=== PATIENT | female | born 1960 | race Caucasian/White ===

== ENCOUNTER 2025-04-01 07:04 | Day surgery (SDC) | payer OTHER ==
[~2025-04-01] VITALS: Ht 168 cm; Wt 87.2 kg
[2025-04-01] VITALS (21 sets, daily range): BP systolic 124–184; BP diastolic 75–112
[~2025-04-01 07:04] MED LIST: CYCL10; CYCL10 PO; IBUP200 PO; KETO10 PO; ONE DAILY COMP1 EACH PO; OXYC5; Oxycodone HCl20 M1 PO
--- NOTE | 2025-04-01 07:55 | NUR ---
Ambulatory in Day Surgery History, Chart, Medications and Allergies reviewed before start of procedure.Patient confirms NPO status and agrees with scheduled surgery. Patient states colon prep results clear.Lungs clear T/O to Auscultation.
--- NOTE | 2025-04-01 08:13 | NUR ---
04/01/25 0813 Hamzah Ashby CONFIRMED AND REVIEWED H&P, MEDCICATIONS, ALLERGIES, MEDICAL HISTORY, RESPIRATORY HISTORY, VITAL SIGNS, 3-LEAD EKG, CONSENTS, AND PHYSICIAN ORDERS. PATIENT CONFIRMS NPO STATUS AND AGREES WITH SCHEDULED PROCEDURE. MONITOR INTACT WITH CONTINUOUS PULSE OXIMETRY, CAPNOGRAPHY, 3-LEAD EKG, INTERMITTENT BP. SUPPLEMENTAL O2 TO BE TITRATED THROUGHOUT PROCEDURE TO MAINTAIN O2 SATURATION ABOVE 90%. PATIENT DETERMINED TO BE ASA APPROPRIATE FOR PROPOFOL SEDATION PRIOR TO START OF PROCEDURE BY DR. MITTAL
[2025-04-01] MEDS ORDERED: Midazolam HCl 1MG / ML 2ML Vial ONE (08:18)
--- NOTE | 2025-04-01 09:06 | NUR ---
Discharge instructions reviewed with patient. Patient verbalizes understanding. Copy given to patient to take home. Patient States Post-Procedure ride home has been arranged. Discharged via wheelchair to private car for ride home.
== END 2025-04-01 09:07 | disposition home or self-care (01) ==
LOC: ORSCMMR 07:04 → ORD 08:00 → ORSCMMR 08:00
PROVIDERS: Internal Medicine Gastroenterology
PROC: 0DBN8ZX Excision of Sigmoid Colon, Via Natural or Artificial Opening Endoscopic, Diagnostic (ICD-10-PCS; principal; 2025-04-01 08:00)
PROC: 0DBP8ZX Excision of Rectum, Via Natural or Artificial Opening Endoscopic, Diagnostic (ICD-10-PCS; principal; 2025-04-01 08:00)
DX: Z12.11 Encounter for screening for malignant neoplasm of colon (principal); D12.5 Benign neoplasm of sigmoid colon; K63.5 Polyp of colon; K62.1 Rectal polyp; K57.30 Diverticulosis of large intestine without perforation or abscess without bleeding; Z80.0 Family history of malignant neoplasm of digestive organs; Z86.0101 Personal history of adenomatous and serrated colon polyps; Z85.53 Personal history of malignant neoplasm of renal pelvis; F17.210 Nicotine dependence, cigarettes, uncomplicated
CPT/HCPCS: 88305; J2250; J2704; J7120

== ENCOUNTER 2025-05-06 07:48 | Emergency (ER) | payer OTHER ==
[~2025-05-06] VITALS: Ht 167.6 cm; Wt 89.8 kg
[2025-05-06 08:59] LABS: BASOPHILS ABSOLUTE AUTO 0.07 K/mm3 (0.00-0.23); BASOPHILS PERCENT AUTO 1 % (0-2); EOSINOPHILS ABSOLUTE AUTO 0.35 K/mm3 (0.00-0.68); EOSINOPHILS PERCENT AUTO 4 % (0-6); Hematocrit 40.7 % (33.0-51.0); Hemoglobin 13.2 g/dL (11.5-16.0); IMMATURE GRAN ABSOLUTE AUTO 0.05 K/mm3 (0.00-0.10); IMMATURE GRAN PERCENT AUTO 1 % (0-1); LYMPHOCYTES ABSOLUTE AUTO 2.36 K/mm3 (0.84-5.20); LYMPHOCYTES PERCENT AUTO 27 % (21-46); MONOCYTES ABSOLUTE AUTO 0.54 K/mm3 (0.16-1.47); MONOCYTES PERCENT AUTO 6 % (4-13); Mean Corpuscular HGB Conc 32.4 g/dL (31.5-36.5); Mean Corpuscular Volume 85 fL (80-100); NEUTROPHILS ABSOLUTE AUTO 5.28 K/mm3 (1.96-9.15); NEUTROPHILS PERCENT AUTO 61 % (41-73); NRBC ABSOLUTE 0.00 K/mm3 (0.00-0.02); NRBC Auto 0.0 /100 WBC (0.0-0.2); Platelet Count 288 K/mm3 (150-400); RDW Coefficient Variation 14.5 % (11.7-14.2); RDW Standard Deviation 44.8 fL (35.1-46.3)
[2025-05-06 09:21] LABS: Alanine Aminotransfer (ALT/SGP 33.0 U/L (12-78); Albumin, Blood 3.5 g/dL (3.4-5.0); Albumin/Globulin Ratio 0.9 (0.8-1.8); Anion Gap 9.0 mmol/L (3-11); Aspartate Aminotrans (AST/SGOT 22.0 U/L (12-37); Bilirubin, Total 0.2 mg/dL (0.1-1.0); Blood Urea Nitrogen 19.0 mg/dL (8-24); CO2, Blood 25.0 mmol/L (21-32); Calcium, Blood 9.0 mg/dL (8.5-10.1); Chloride, Blood 108.0 mmol/L (98-108); Creatinine, Blood 0.83 mg/dL (0.40-1.00); Globulin, Blood 3.7 g/dL (2.2-4.0); Glucose, Blood 111.0 mg/dL (70-99); Potassium, Blood 4.2 mmol/L (3.5-5.5); Sodium, Blood 138.0 mmol/L (136-145); Total Protein, Blood 7.2 g/dL (6.4-8.2)
[2025-05-06 09:50] LABS: Source, Urine Clean Catch
[2025-05-06 09:54] LABS: Bilirubin, Urine Neg (Neg); Color, Urine Red (P-Yellow); Glucose Qualitative, Urine Neg (Neg); Ketones, Urine Neg (Neg); Leukocyte Esterase, Urine 1+ (Neg); Protein, Urine 3+ (Neg); Specific Gravity, Urine 1.015 (1.003-1.022); Urobilinogen, Urine NORM (Normal)
[2025-05-06 10:00] LABS: Red Blood Cells, Urine TNTC /hpf (0-2); White Blood Cells, Urine 25-50 /hpf (0-5)
[2025-05-06] MEDS ORDERED: NITR100CA PO (11:20)
[2025-05-06 11:33] VITALS: BP 178/97
== END 2025-05-06 11:33 | disposition home or self-care (01) ==
LOC: ER 07:48
PROVIDERS: Student in an Organized Health Care Education/Training Program
DX: K52.9 Noninfective gastroenteritis and colitis, unspecified (principal); N39.0 Urinary tract infection, site not specified; K57.30 Diverticulosis of large intestine without perforation or abscess without bleeding; N20.0 Calculus of kidney; F17.200 Nicotine dependence, unspecified, uncomplicated; Z98.890 Other specified postprocedural states; Z88.2 Allergy status to sulfonamides; Z88.0 Allergy status to penicillin
CPT/HCPCS: 74177; 80053; 81001; 85025; 87086; 99284-25; Q9967

== ENCOUNTER → 2025-07-22 | Outpatient (CLI) | payer OTHER ==
[~2025-07-22] MED LIST changes: +NITR100CA PO
[2025-07-27 06:26] LABS: CALCIUM, URINE - PER 24H 126 mg/d (100-250); CALCIUM, URINE - PER VOLUME 11.5 mg/dL; CHLORIDE, URINE - PER 24H 133 mmol/d (140-250); CHLORIDE, URINE - PER VOLUME 121 mmol/L; CITRIC ACID, URINE - PER 24H 24 mg/d (320-1240); CITRIC ACID,URINE - PER VOLUME 22 mg/L; CREATININE, URINE - PER 24H 1199 mg/d (500-1400); CREATININE, URINE - PER VOLUME 109 mg/dL; HOURS COLLECTED 24 hr; MAGNESIUM, URINE - PER VOLUME 4.4 mg/dL; MAGNESIUM, URINE PER 24H 48 mg/d (12-199); OXALATE, URINE - PER 24H 24 mg/d (13-40); OXALATE, URINE - PER VOLUME 22 mg/L; PHOSPHORUS, URINE - PER 24H 605 mg/d (400-1300); PHOSPHORUS, URINE - PER VOLUME 55 mg/dL; POTASSIUM, URINE - PER 24H 31 mmol/d (25-125); POTASSIUM, URINE - PER VOLUME 28 mmol/L; SODIUM, URINE - PER 24H 153 mmol/d (51-286); SODIUM, URINE - PER VOLUME 139 mmol/L; SULFATE, URINE - PER 24H 13 mmol/d (6-30); SULFATE, URINE - PER VOLUME 12 mmol/L; URIC ACID, URINE - PER 24H 531 mg/d (250-750); URIC ACID, URINE - PER VOLUME 48.3 mg/dL; URINE SUPERSATURATION INTERP Abnormal; URINE SUPERSATURATION, CAHPO4 3.55; URINE SUPERSATURATION, CAOX 6.84; URINE SUPERSATURATION, UA CALC 0.29
== END ==
LOC: LAB SHORT 07:00 → LAB 07:00 → LAB FUT 06-06 14:45 → EDSTATUS 06-06 14:45
PROVIDERS: Urology
DX: N20.0 Calculus of kidney (principal)
CPT/HCPCS: 81003; 81050; 82131; 82140; 82340; 82436; 82507; 82570; 83735; 83935; 83945; 84105; 84133; 84300; 84392; 84560